=== PATIENT | female | born 1965 | race Caucasian/White ===

== ENCOUNTER 2022-08-24 14:03 | Outpatient (RCR) | payer OTHER, SELFPAY | END 2023-02-20 23:59 | disposition home or self-care (01) | LOC: CCIC 14:03 | PROVIDERS: Visit Provider Nurse Practitioner Family | DX: C50.912 Malignant neoplasm of unspecified site of left female breast (principal); Z17.0 Estrogen receptor positive status [ER+]; Z79.811 Long term (current) use of aromatase inhibitors; Z90.13 Acquired absence of bilateral breasts and nipples; Z78.0 Asymptomatic menopausal state | CPT/HCPCS: 99212; 99214 ==

== ENCOUNTER 2023-04-05 12:23 | Outpatient (RCR) | payer OTHER, SELFPAY ==
--- NOTE | 2023-05-03 15:19 | ONC.NURNOTE ---
Ry stopped by today after CT Scan- she is feeling anxious about the results and is looking forward to hearing for the office with results.
== END 2023-10-02 23:59 | disposition home or self-care (01) ==
LOC: CCIC 12:23
PROVIDERS: Visit Provider Physician Assistant
DX: C50.912 Malignant neoplasm of unspecified site of left female breast (principal); Z17.0 Estrogen receptor positive status [ER+]; Z79.811 Long term (current) use of aromatase inhibitors; R07.81 Pleurodynia; F43.21 Adjustment disorder with depressed mood
CPT/HCPCS: 99212; 99214; 99215

== ENCOUNTER 2023-04-12 13:43 | Outpatient (CLI) | payer OTHER, SELFPAY ==
--- NOTE | 2023-04-12 13:45 | CRLHL7_ITS ---
For Patients: As a result of the Century Cures Act, medical imaging exams and procedure reports are released immediately into your electronic medical record. You may view this report before your referring provider. If you have questions, please contact your health care provider. INDICATION: Breast cancer TECHNIQUE: Chest 2 views COMPARISON: None FINDINGS: Cardiovascular and mediastinum: Heart size and vasculature are normal in caliber and appearance. Lungs and pleural spaces: Lungs are clear. No sign of infiltrate or mass. No sign of pleural effusion. No pneumothorax. Bones and soft tissues: No significant findings. IMPRESSION: Clear lungs. Dictated by Johnnie Lawson MD @ 04/12/2023 3:15:42 PM (Electronically Signed)
== END 2023-04-12 13:44 | disposition home or self-care (01) ==
LOC: RAD 13:45
PROVIDERS: Visit Provider Physician Assistant
DX: C50.919 Malignant neoplasm of unspecified site of unspecified female breast (principal); R07.81 Pleurodynia
CPT/HCPCS: 71046

== ENCOUNTER 2023-04-25 12:14 | Outpatient (CLI) | payer OTHER, SELFPAY ==
--- NOTE | 2023-04-25 13:00 | CRLHL7_ITS ---
For Patients: As a result of the Century Cures Act, medical imaging exams and procedure reports are released immediately into your electronic medical record. You may view this report before your referring provider. If you have questions, please contact your health care provider. DXA BONE MINERAL DENSITY STUDY Reason for exam: Long-term (current) use of aromatase inhibitors. Current height (in): 61.5. Weight (lb): 139. Menopause age: 49. Ethnicity: White. 1. Have you had a previous hip or vertebral fracture? No. 2. Have you had any fractures during your adult life which did not result from significant trauma (e.g., auto accident)? No. 3. Did either of your parents have a hip fracture? No. 4. Do you smoke? No. 5. Have you ever taken Glucocorticoids? No. 6. Do you have rheumatoid arthritis? No. 7. Do you have secondary osteoporosis? No. 8. Do you drink 3 or more alcoholic drinks per day? No. 9. Are you being treated for osteoporosis? No. 10. Have you ever taken any of the following medications: Actonel, Evista, Fosamax, Miacalcin, Reclast, Boniva, Forteo, HRT (i.e., estrogen/hormone therapy), Protelos, Prolia, Vitamin D, Calcium, other ??? please specify. ANSWER: Yes, vitamin D and calcium. 11. Do you have any of the following medical conditions: Anorexia or bulimia, asthma or emphysema, end stage renal disease, hyperparathyroidism, any seizure disorders, cancer, inflammatory bowel diseases, hysterectomy, other ??? please specify. ANSWER: Yes, cancer. 12. What was your maximum height (inches)? 61.5. 13. Do you perform weight bearing exercise regularly? No 14. Do you regularly consume dairy products? Yes. 15. Do you drink caffeinated beverages? Yes. If female: 16. At what age did your period start? 14. 17. Are you premenopausal? No. 18. How many full-term pregnancies have you had? 3. 19. Have you ever missed your period for more than 6 months in a row (not including or menopause)? Yes. TECHNIQUE: Bone mineral density study was performed using the [employer]. FINDINGS: The results of the study expressed as bone mineral density (BMD) are as follows: Lumbar spine L1 to L4: BMD: 1.000 g/cm2. T-score: -0.4. Z-score: 0.7 Neck Left: BMD: 0.771 g/cm2. T-score: -0.7. Z-score: 0.4 Right: BMD: 0.816 g/cm2. T-score: -0.3. Z-score: 0.8 Total Left: BMD: 1.034 g/cm2. T-score: 0.8. Z-score: 1.5 Right: BMD: 1.046 g/cm2. T-score: 0.9. Z-score: 1.6 IMPRESSION: Normal bone density. *Comparison exams done prior to 12/2019 were performed on different unit, [employer]. COMPARISON: Compared with scan of 05/19/2021, the bone mineral density has decreased by 1.9 percent at the spine and decreased by 2.8 percent at the hip. Johnnie Lawson M.D. Diagnostic Radiologist [email or web address] [place]IA/cl [place]/Dictated by: Johnnie Lawson MD @ 04/26/2023 9:10:00 AM (Electronically Signed)
== END 2023-04-25 12:15 | disposition home or self-care (01) ==
LOC: RAD 12:15
PROVIDERS: Visit Provider Physician Assistant
DX: Z79.811 Long term (current) use of aromatase inhibitors (principal)
CPT/HCPCS: 77080

== ENCOUNTER 2023-05-03 13:39 | Outpatient (CLI) | payer OTHER, SELFPAY ==
--- NOTE | 2023-05-03 14:00 | CRLHL7_ITS ---
For Patients: As a result of the Century Cures Act, medical imaging exams and procedure reports are released immediately into your electronic medical record. You may view this report before your referring provider. If you have questions, please contact your health care provider. Indication: MALIGNANT NEOPLASM, FROM BREAST CANCER Technique: Post contrast CT chest. 70 cc Isovue 370 intravenous contrast. Please note that all CT scans at this facility use dose modulation, iterative reconstruction, and/or weight-based dosing when appropriate to reduce radiation dose to as low as reasonably achievable. Comparison: 01/04/2016 Findings: Postoperative changes of bilateral mastectomy with implant reconstruction. No enlarged mediastinal, hilar or axillary lymph nodes. No thyroid lesion. No pleural or pericardial effusion. The upper abdomen is unremarkable. Lungs are clear without infiltrate, edema, effusion or pneumothorax. Normal osseous structures without fracture or intrinsic osseous lesion. Impression: No evidence of metastatic disease. Please note that all CT scans at this facility use dose modulation, iterative reconstruction, and/or weight-based dosing when appropriate to reduce radiation dose to as low as reasonably achievable. Dictated by Johnnie Lawson MD @ 05/04/2023 11:01:03 AM (Electronically Signed)
--- NOTE | 2023-05-07 11:23 | ONC.NURNOTE ---
CT chest results reviewed by Bushra Lu PA-C. Pt notified.
== END 2023-05-03 13:40 | disposition home or self-care (01) ==
LOC: CT 13:40
PROVIDERS: Visit Provider Physician Assistant
DX: C50.919 Malignant neoplasm of unspecified site of unspecified female breast (principal); R07.81 Pleurodynia
CPT/HCPCS: 71260; Q9967

== ENCOUNTER 2024-04-30 13:46 | Outpatient (RCR) | payer OTHER, SELFPAY | END 2024-10-27 23:59 | disposition home or self-care (01) | LOC: CCIC 13:46 | PROVIDERS: Visit Provider Internal Medicine Hematology & Oncology | DX: C50.912 Malignant neoplasm of unspecified site of left female breast (principal); Z17.0 Estrogen receptor positive status [ER+]; Z79.811 Long term (current) use of aromatase inhibitors; R07.81 Pleurodynia; F43.21 Adjustment disorder with depressed mood | CPT/HCPCS: 99215; G0463 ==

== ENCOUNTER 2024-05-22 12:11 | Outpatient (CLI) | payer OTHER, SELFPAY ==
--- NOTE | 2024-05-22 13:00 | CRLHL7_ITS ---
For Patients: As a result of the Century Cures Act, medical imaging exams and procedure reports are released immediately into your electronic medical record. You may view this report before your referring provider. If you have questions, please contact your health care provider. Indication: MALIGNANT NEOPLASM OF BREAST Technique: CT Chest/Abd/Pelvis WITH 74 CC ISOVUE 370 Please note that all CT scans at this facility use dose modulation, iterative reconstruction, and/or weight-based dosing when appropriate to reduce radiation dose to as low as reasonably achievable. Comparison: 05/03/23 Findings: In the chest, stable calcified granuloma within the left upper lobe is noted. No suspicious pulmonary nodule. The visualized thyroid gland is normal. No mediastinal, hilar or axillary adenopathy. Postop changes of bilateral mastectomy with implant reconstruction. No pleural effusion or infiltrate. No pneumothorax or pulmonary edema. Osseous structures normal. In the abdomen, the liver parenchyma is normal. Stable incidental cyst within the spleen measures 1.2 cm. The pancreas is normal. Normal adrenal glands. The kidneys are normal. Gallbladder is incompletely distended. No hiatal hernia. Mild vascular calcifications are present. No retroperitoneal or mesenteric adenopathy. In the pelvis, the bladder is normal. Normal uterus. Ovaries are unremarkable. No bowel obstruction, free air, free fluid or adenopathy. No fracture. No suspicious osseous lesion. Impression: No evidence of metastatic disease. Please note that all CT scans at this facility use dose modulation, iterative reconstruction, and/or weight-based dosing when appropriate to reduce radiation dose to as low as reasonably achievable. Dictated by Johnnie Lawson MD @ 05/23/2024 5:39:52 AM (Electronically Signed)
== END 2024-05-22 12:12 | disposition home or self-care (01) ==
PROVIDERS: Visit Provider Internal Medicine Hematology & Oncology
DX: C50.919 Malignant neoplasm of unspecified site of unspecified female breast (principal)
CPT/HCPCS: 71260; 74177; Q9967

== ENCOUNTER 2025-06-11 12:44 | Outpatient (CLI) | payer BC, SELFPAY ==
--- NOTE | 2025-06-11 13:00 | CRLHL7_ITS ---
For Patients: As a result of the Century Cures Act, medical imaging exams and procedure reports are released immediately into your electronic medical record. You may view this report before your referring provider. If you have questions, please contact your health care provider. DXA BONE MINERAL DENSITY STUDY Reason for exam: Postmenopausal. Breast cancer treatment with anastrozole. Current height (in): 61. Weight (lb): 110. Menopause age: 49. Ethnicity: White. 1. Have you had a previous hip or vertebral fracture? No. 2. Have you had any fractures during your adult life which did not result from significant trauma (e.g., auto accident)? No. 3. Did either of your parents have a hip fracture? No. 4. Do you smoke? No. 5. Have you ever taken Glucocorticoids? No. 6. Do you have rheumatoid arthritis? No. 7. Do you have secondary osteoporosis? No. 8. Do you drink 3 or more alcoholic drinks per day? No. 9. Are you being treated for osteoporosis? No. 10. Have you ever taken any of the following medications: Actonel, Evista, Fosamax, Miacalcin, Reclast, Boniva, Forteo, HRT (i.e. estrogen/hormone therapy), Protelos, Prolia, Vitamin D, Calcium, other ??? please specify. ANSWER: Yes, Vitamin D and Calcium. 11. Do you have any of the following medical conditions: Anorexia or bulimia, asthma or emphysema, end stage renal disease, hyperparathyroidism, any seizure disorders, cancer, inflammatory bowel diseases, hysterectomy, other ??? please specify. ANSWER: Yes, cancer. 12. What was your maximum height (inches)? 61.5. 13. Do you perform weight bearing exercise regularly? No. 14. Do you regularly consume dairy products? No. 15. Do you drink caffeinated beverages? Yes. 16. At what age did your period start? 14. 17. Are you premenopausal? No. 18. How many full-term pregnancies have you had? 3. 19. Have you ever missed your period for more than 6 months in a row (not including or menopause)? Yes. TECHNIQUE: Bone mineral density study was performed using the [employer]. FINDINGS: The results of the study expressed as bone mineral density (BMD) are as follows: Lumbar spine L1 to L4: BMD: 0.971 g/cm2. T-score: -0.7. Z-score: 0.6. Neck Left: BMD: 0.782 g/cm2. T-score: -0.6. Z-score: 0.6. Right: BMD: 0.828 g/cm2. T-score: -0.2. Z-score: 1.0. Total Left: BMD: 0.975 g/cm2. T-score: 0.3. Z-score: 1.1. Right: BMD: 0.993 g/cm2. T-score: 0.4. Z-score: 1.3. IMPRESSION: Normal bone density. *Comparison exams done prior to 12/2019 were performed on different unit, [employer]. COMPARISON: Compared with scan of 04/25/2023, the bone mineral density has decreased by 2.9 percent at the spine and decreased by 5.4 percent at the hip. Compared with scan of 05/19/2021, the bone mineral density has decreased by 1.9 percent at the spine and decreased by 2.8 percent at the hip. Johnnie Lawson M.D. Diagnostic Radiologist [email or web address]YCIA/cl [place]/Dictated by: Johnnie Lawson MD @ 06/11/2025 3:31:00 PM (Electronically Signed)
== END 2025-06-11 12:45 | disposition home or self-care (01) ==
LOC: RAD 12:45
PROVIDERS: PCP Family Medicine; Visit Provider Internal Medicine Hematology & Oncology
DX: N95.9 Unspecified menopausal and perimenopausal disorder (principal); C50.919 Malignant neoplasm of unspecified site of unspecified female breast; Z79.811 Long term (current) use of aromatase inhibitors
CPT/HCPCS: 77080